=== PATIENT | male | born 1950 | race Caucasian/White ===

== ENCOUNTER 2021-07-19 20:08 | Observation (INO) ==
[2021-07-19 22:59] LABS: Bilirubin,Urine Negative (Negative); Blood,Urine Negative (Negative); Clarity,Urine Clear (Clear); Color,Urine Light-Yellow (Yellow); Glucose,Urine (UA) Normal (Normal); Ketones,Urine Negative (Negative); Leukocyte Esterase,Urine Negative (Negative); Nitrite,Urine Negative (Negative); Protein,Urine Negative (Neg-Trace); Specific Gravity,Urine 1.007 (1.010-1.025); Urobilinogen,Urine Normal (Normal)
[2021-07-19 23:24] LABS: Basophils % 0.3 %; Eosinophils % 0.3 %; Hematocrit 42.6 % (37.5-50.1); Hemoglobin 14.9 g/dL (12.9-16.9); Immature Granulocytes % 0.2 % (0-4); Lymphocytes # 2.2 K/mcL (0.6-4.6); Mean Corpuscular Hemoglobin 32.8 pg (28.0-33.3); Mean Corpuscular Volume 93.8 fL (83.0-100.0); Monocytes # 0.6 K/mcL (0.0-1.3); Neutrophils # 3.7 K/mcL (1.6-8.9); Platelet Count 234 K/mcL (140-400); Red Blood Count 4.54 M/mcL (4.19-5.50); Red Cell Distribution Width 11.6 % (11.5-14.5); Segmented Neutrophils % 56.2 %; White Blood Count 6.5 K/mcL (4.3-11.1)
[2021-07-19 23:46] LABS: BUN/Creatinine Ratio 9 (6-26); Blood Urea Nitrogen 8 mg/dL (8-23); Calcium 9.6 mg/dL (8.6-10.3); Carbon Dioxide 24 mEq/L (23-29); Chloride 109 mEq/L (98-107); Glucose 105 mg/dL (70-105); Osmolality,Calculated 295 (280-300); Potassium 3.6 mEq/L (3.5-5.1); Sodium 143 mEq/L (136-145); Troponin I < 0.03 ng/mL (< 0.04); eGFR For African Americans > 60 (> 60); eGFR For Non-African Americans > 60 (> 60)
[2021-07-20] MEDS ORDERED: Ondansetron 4 MG/2 ML VIAL IVP ONE (00:03)
[2021-07-20] MEDS ORDERED: 0.9 % Sodium Chloride 1,000 ML IVC ONE ×2 (00:03→02:34)
[2021-07-20] MEDS ORDERED: Naloxone 0.4 MG/ML INJ IVP PRN (05:16)
[2021-07-20] MEDS: *HR* Heparin 5,000 UNIT/ML VIAL SQ SCH ×2 (13:57→21:26)
[2021-07-20 20:11] LABS: Influenza A PCR Negative (Negative); Influenza B PCR Negative (Negative); Resp. Syncytial Virus PCR Negative (Negative)
[2021-07-20 20:27] LABS: SARS-CoV-2 by PCR (In House) Negative (Negative)
[2021-07-21] MEDS: *HR* Heparin 5,000 UNIT/ML VIAL SQ SCH (06:40)
[2021-07-21 06:56] VITALS: BP 137/68; PULSE 50; TEMP 97.6; O2SAT 96
[2021-07-21 07:38] LABS: Basophils % 0.5 %; Eosinophils # 0.1 K/mcL (0.0-0.6); Eosinophils % 0.9 %; Hematocrit 42.6 % (37.5-50.1); Hemoglobin 14.1 g/dL (12.9-16.9); Immature Granulocytes % 0.2 % (0-4); Lymphocytes # 2.6 K/mcL (0.6-4.6); Lymphocytes % 46.6 %; Mean Corpuscular HGB Conc 33.1 g/dL (31.6-35.5); Mean Corpuscular Hemoglobin 32.1 pg (28.0-33.3); Mean Platelet Volume 10.2 fL (9.4-12.4); Monocytes # 0.5 K/mcL (0.0-1.3); Monocytes % 9.2 %; Neutrophils # 2.4 K/mcL (1.6-8.9); Platelet Count 205 K/mcL (140-400); Red Blood Count 4.39 M/mcL (4.19-5.50); Red Cell Distribution Width 11.8 % (11.5-14.5); Segmented Neutrophils % 42.6 %; White Blood Count 5.7 K/mcL (4.3-11.1)
[2021-07-21 07:58] LABS: BUN/Creatinine Ratio 11 (6-26); Blood Urea Nitrogen 9 mg/dL (8-23); Calcium 9.3 mg/dL (8.6-10.3); Carbon Dioxide 26 mEq/L (23-29); Chloride 109 mEq/L (98-107); Glucose 95 mg/dL (70-105); Osmolality,Calculated 292 (280-300); Potassium 3.7 mEq/L (3.5-5.1); Sodium 142 mEq/L (136-145); eGFR For African Americans > 60 (> 60); eGFR For Non-African Americans > 60 (> 60)
[2021-07-21] MEDS ORDERED: VENLAFAXINE HCL 37.5 MG PO SCH (09:00)
[2021-07-21] MEDS ORDERED: Aspirin Enteric Coated 81 MG Tablet PO SCH (09:00)
[2021-07-21] MEDS ORDERED: Amoxicillin 500 MG CAPSULE PO SCH (09:00)
[2021-07-21] MEDS ORDERED: metroNIDAZOLE 500 MG TABLET PO SCH (09:00)
[2021-07-21] MEDS ORDERED: NON-FORMULARY MEDICATION 1 EACH EACH (Pantoprazole Sodium [Protonix] 40 MG Tablet.Dr) PO SCH (09:00)
== END 2021-07-21 08:57 | disposition home or self-care (01) ==
LOC: EMEROOARM 20:08 → 3ANU 20:08 → SUATTDRO 07-20 04:52 → 3ANU 07-20 05:23
PROVIDERS: ADMIT Internal Medicine; ATTEND Internal Medicine

== ENCOUNTER 2022-03-25 20:10 | Observation (INO) ==
[2022-03-25] MEDS ORDERED: Melatonin 3 MG TABLET PO PRN (23:02)
[2022-03-25] MEDS ORDERED: Ondansetron 4 MG/2 ML VIAL IVP PRN (23:02)
[2022-03-25] MEDS ORDERED: Naloxone 0.4 MG/ML INJ IVP PRN (23:02)
[2022-03-26 00:43] LABS: Basophils % 0.6 %; Eosinophils # 0.2 K/mcL (0.0-0.6); Eosinophils % 2.8 %; Hematocrit 44.9 % (37.5-50.1); Hemoglobin 14.9 g/dL (12.9-16.9); Immature Granulocytes % 0.1 % (0-4); Lymphocytes # 3.3 K/mcL (0.6-4.6); Lymphocytes % 45.4 %; Mean Corpuscular HGB Conc 33.2 g/dL (31.6-35.5); Mean Corpuscular Hemoglobin 31.8 pg (28.0-33.3); Mean Corpuscular Volume 95.9 fL (83.0-100.0); Mean Platelet Volume 10.2 fL (9.4-12.4); Monocytes # 0.6 K/mcL (0.0-1.3); Monocytes % 8.8 %; Platelet Count 191 K/mcL (140-400); Red Blood Count 4.68 M/mcL (4.19-5.50); Red Cell Distribution Width 12.4 % (11.5-14.5); Segmented Neutrophils % 42.3 %; White Blood Count 7.2 K/mcL (4.3-11.1)
[2022-03-26 01:09] LABS: Alanine Aminotransferase 17 Units/L (7-52); Albumin 4.1 g/dL (3.5-5.7); Albumin/Globulin Ratio 1.6 (1.1-2.2); Alkaline Phosphatase 27 Units/L (34-104); Aspartate Amino Transferase 20 Units/L (13-39); BUN/Creatinine Ratio 14 (6-26); Blood Urea Nitrogen 12 mg/dL (8-23); Calcium 9.8 mg/dL (8.6-10.3); Carbon Dioxide 31 mEq/L (23-29); Chloride 104 mEq/L (98-107); Chol/HDL Ratio 2.5 (0-4.9); Cholesterol 139 mg/dL (< 200); Globulin 2.5 g/dL (2.4-3.5); Glucose 94 mg/dL (70-105); HDL Cholesterol 55 mg/dL (40-59); LDL Cholesterol,Calculated 65 mg/dL (< 100); Magnesium 1.9 mg/dL (1.6-2.6); Osmolality,Calculated 300 (280-300); Potassium 4.3 mEq/L (3.5-5.1); Sodium 145 mEq/L (136-145); Total Protein 6.6 g/dL (6.4-8.9); Triglycerides 95 mg/dL (< 150); Troponin I < 0.03 ng/mL (< 0.04); eGFR For African Americans > 60 (> 60); eGFR For Non-African Americans > 60 (> 60)
[2022-03-26 02:23] LABS: Estimated Average Glucose 111 mg/dl; Hemoglobin A1C 5.5 %
[2022-03-26] MEDS ORDERED: Perflutren Lipid Microsphere 1.3 ML in 0.9 % Sodium Chloride 8.7 ML IVP PRN (03:22)
[2022-03-26] MEDS ORDERED: Isovue-370 500 ML BOTTLE IVP ONE (03:31)
[2022-03-26] MEDS ORDERED: Regadenoson 0.4 MG/5 ML SYRINGE IVP ONE (06:29)
[2022-03-26] MEDS: Acetaminophen 325 MG TABLET PO PRN ×2 (08:42→20:19)
[2022-03-26] MEDS: polyethylene glycoL 3350 17 GM POWD.PACK PO SCH (11:48)
[2022-03-26] MEDS: Aspirin Enteric Coated 81 MG Tablet PO SCH (14:46)
[2022-03-26] MEDS ORDERED: Gabapentin 100 MG CAPSULE PO SCH (21:00)
[2022-03-27] MEDS: Aspirin Enteric Coated 81 MG Tablet PO SCH (08:29)
[2022-03-27] MEDS: polyethylene glycoL 3350 17 GM POWD.PACK PO SCH (08:30)
[2022-03-27 10:33] VITALS: PULSE 57; TEMP 97.4; O2SAT 96
[2022-03-27 14:33] VITALS: BP 109/56
== END 2022-03-27 18:36 | disposition home or self-care (01) ==
LOC: 3BNU → SUATTDRO 22:16
PROVIDERS: ADMIT Internal Medicine; ATTEND Nurse Practitioner